=== PATIENT | female | born 1970 | race Caucasian/White ===

== ENCOUNTER 2017-04-24 09:49 | Inpatient (IN) | payer OTHER ==
[2017-04-24 11:07] VITALS: BMI 36.1
--- NOTE | 2017-04-24 15:56 | HP ---
CIWA Score - CIWA Score Nausea/Vomitin-Mild Nausea/No Vomiting Muscle Tremors: 4-Moderate,w/Arms Extend Anxiety: 4-Mod. Anxious/Guarded Agitation: 1-Slight > Activity Paroxysmal Sweats: 1-Minimal Palms Moist Orientation: 1-Uncertain about Date Tacttile Disturbances: 1-Very Mild Itch/Numbness Auditory Disturbances: 1-Very Mild Visual Disturbances: 1-Very Mild Sensitivity Headache: 2-Mild CIWA-Ar Total Score: 17 Admission ROS BHS - HPI Chief Complaint: I need to stop drinking, I'm afraid I'm going to if I don't Allergies/Adverse Reactions: Allergies Allergy/AdvReac Type Severity Reaction Status Date / Time No Known Allergies Allergy Verified 04/24/17 13:34 History of Present Illness: 46 yo woman here for detox from alcohol - was sober for 1.5 years but relapsed a few months ago. History of seizure three years ago but having black outs. Previous detox here in 2014. Was in [place] detox a week ago but states the medication they used did not help. Exam Limitations: Clinical Condition - Ebola screening Have you traveled outside of the country in the last 21 days: No Have you had contact with anyone from an Ebola affected area: No Have you been sick,other than usual withdrawal symptoms: No Do you have a fever: No - Review of Systems Constitutional: Loss of Appetite, Night Sweats, Changes in sleep, Weakness EENT: reports: Blurred Vision Respiratory: reports: Cough Cardiac: reports: No Symptoms Reported GI: reports: Diarrhea, Nausea, Indigestion : reports: Frequency Musculoskeletal: reports: Back Pain, Muscle Pain Integumentary: reports: Dryness Neuro: reports: Headache, Tremors Endocrine: reports: No Symptoms Reported Hematology: reports: No Symptoms Reported Psychiatric: reports: Judgement Intact, Mood/Affect Appropiate, Orientated x3 Other Systems: Reviewed and Negative Patient History - Patient Medical History Hx Anemia: No Hx Asthma: Yes (Pt is on MDI.) Hx Chronic Obstructive Pulmonary Disease (COPD): No Hx Cancer: No Hx Cardiac Disorders: No Hx Congestive Heart Failure: No Hx Hypertension: Yes (on meds.) Hx Hypercholesterolemia: No Hx Pacemaker: No HX Cerebrovascular Accident: No Hx Seizures: Yes (last seizure was in 2014) Hx Dementia: No Hx Diabetes: Yes Hx Gastrointestinal Disorders: Yes (Hx of GERD.) Hx Liver Disease: No Hx Genitourinary Disorders: No Hx Sexually Transmitted Disorders: No Hx Renal Disease (ESRD): No Hx Thyroid Disease: No Hx Human Immunodeficiency Virus (HIV): No (2012 last) Hx Hepatitis C: No Hx Depression: Yes (also ADD) Hx Suicide Attempt: No Hx Bipolar Disorder: Yes Hx Schizophrenia: No Other Medical History: chronic back pain - Patient Surgical History Past Surgical History: No - PPD History Previous Implant?: Yes Documented Results: Negative w/o proof Implanted On Prior [facility] Admission?: Yes Date: 12/27/14 PPD to be Administered?: Yes - Reproductive History Patient is a Female of Child Bearing Age (11 -55 yrs old): Yes Last Menstrual Period: 01/18/14 Patient : No - Smoking Cessation Smoking history: Current every day smoker Have you smoked in the past 12 months: Yes Aproximately how many cigarettes per day: 20 Cigars Per Day: 0 Hx Chewing Tobacco Use: No Initiated information on smoking cessation: Yes 'Breaking Loose' booklet given: 04/24/17 (give on floor) - Substance & Tx. History Hx Alcohol Use: Yes Hx Substance Use: No Substance Use Type: Alcohol Hx Substance Use Treatment: Yes (detox ) - Substances Abused Alcohol Route: Oral Frequency: Daily Amount used: 1-2 pints Age of first use: 16 Date of Last Use: 04/23/17 Family Disease History - Family Disease History Family Disease History: Diabetes: Mother (alive, ), Sister (alive - one with DM) , Other: Father ( - ulcer - etoh), Mother, Sister Admission Physical Exam S - Vital Signs Vital Signs: Vital Signs - 24 hr 04/24/17 11:03 Temperature 98.0 F Pulse Rate 78 Respiratory 20 Rate Blood Pressure 111/73 - Physical General Appearance: Yes: Nourished, Appropriately Dressed, Mild Distress, Obese , Tremorous, Anxious HEENTM: Yes: Hearing grossly Normal, Normal ENT Inspection, Normocephalic, Normal Voice, Pharynx Normal, Tm's normal Respiratory: Yes: Normal Breath Sounds, No Respiratory Distress Neck: Yes: No masses,lesions,Nodules, Supple Breast: Yes: Breast Exam Deferred Cardiology: Yes: Regular Rhythm, Regular Rate Abdominal: Yes: Soft, Protuberent Genitourinary: Yes: Frequency, Incontinient Back: Yes: Decreased Range of Motion Musculoskeletal: Yes: full range of Motion, Gait Steady Extremities: Yes: Normal Inspection, Normal Range of Motion, Tremors Neurological: Yes: Alert, Motor Strength 5/5, Normal Mood/Affect, Normal Response Integumentary: Yes: Normal Color, Warm, Other (chronic scarred lesions abdomen) Lymphatic: Yes: Within Normal Limits - Diagnostic (1) Alcohol dependence Current Visit: Yes Status: Chronic Qualifiers: Substance use status: uncomplicated Qualified Code(s): F10.20 - Alcohol dependence, uncomplicated (2) Asthma Current Visit: Yes Status: Chronic Qualifiers: Asthma severity: mild intermittent Asthma complication type: uncomplicated Qualified Code(s): J45.20 - Mild intermittent asthma, uncomplicated (3) GERD (gastroesophageal reflux disease) Current Visit: Yes Status: Chronic Qualifiers: Esophagitis presence: esophagitis presence not specified Qualified Code(s): K21.9 - Gastro-esophageal reflux disease without esophagitis (4) Nicotine dependence Current Visit: Yes Status: Chronic Qualifiers: Nicotine product type: cigarettes (5) Type 2 diabetes mellitus Current Visit: Yes Status: Chronic Qualifiers: Diabetes mellitus complication status: with hyperglycemia Diabetes mellitus superintendent container terminal insulin use: with shelter use Qualified Code(s): E11.65 - Type 2 diabetes mellitus with hyperglycemia; Z79.4 - superintendent container terminal (current ) use of insulin (6) History of seizure Current Visit: Yes Status: Chronic (7) Chronic back pain greater than 3 months duration Current Visit: Yes Status: Chronic Cleared for Admission [facility] - Detox or Rehab [facility] Level of Care: Medically Managed Detox Regimen/Protocol: Librium [facility] Breath Alcohol Content Breath Alcohol Content: 0 Urine Pregancy Test - Result Urine Test Results: Negative- NO Line Present Urine Drug Screen - Results Drug Screen Negative: No Urine Drug Screen Results: AMP-Amphetamines, BZO-Benzodiazepines
[2017-04-24] MEDS ORDERED: MENTHOL/PHENOL 1 EACH UD MM PRN (16:08)
[2017-04-24] MEDS ORDERED: guaiFENesin/D-METHORPHAN HB 10 ML UNIT-DOSE CUPS PO PRN (16:08)
[2017-04-24] MEDS ORDERED: MAGNESIUM CITRATE 300 ML BOTTLE PO PRN (16:08)
[2017-04-24] MEDS ORDERED: P-EPHED 60MG/TRIPROLIDI 2.5MG TABLET PO PRN (16:08)
[2017-04-24] MEDS ORDERED: chlordiazePOXIDE HCL 25 MG CAPSULE PO ONE (16:08)
[2017-04-24] MEDS ORDERED: LOPERAMIDE HCL 2 MG CAPSULE PO PRN (16:08)
[2017-04-24] MEDS ORDERED: MAG HYDROX/AL HYDROX/SIMETH 30 ML UNIT-DOSE CUP PO PRN (16:08)
[2017-04-24] MEDS ORDERED: ACETAMINOPHEN 325 MG TABLET (FP) PO PRN (16:08)
[2017-04-24] MEDS ORDERED: MAGNESIUM HYDROX 2400MG/30ML ORAL SUSPENSION 30 ML CUP PO PRN (16:08)
[2017-04-24] MEDS ORDERED: PANTOPRAZOLE 40 MG TABLET (FP) PO SCH (17:00)
[2017-04-24] MEDS ORDERED: INSULIN (NOVOLOG) ASPART 100 UNITS/ML 10ML VIAL ONE (17:25)
[2017-04-24] MEDS: metFORMIN HCL 500 MG TABLET (FP) PO SCH (17:27)
[2017-04-24] MEDS: chlordiazePOXIDE HCL 25 MG CAPSULE PO SCH ×2 (17:28→22:09)
[2017-04-24] MEDS: INSULIN SLIDING SCALE (NOVOLOG) 1 VIAL SQ SCH ×2 (17:28→22:17)
[2017-04-24] MEDS: NICOTINE 21 MG/24 HOURS TOPICAL PATCH TD SCH (17:31)
[2017-04-24] MEDS: chlordiazePOXIDE HCL 25 MG CAPSULE PO PRN (20:24)
[2017-04-24] MEDS: NICOTINE POLACRILEX 4 MG GUM BC PRN (20:27)
[2017-04-24 21:12] LABS: URINE APPEARANCE CLEAR; URINE BILIRUBIN NEGATIVE (NEGATIVE); URINE BLOOD NEGATIVE (NEGATIVE); URINE COLOR YELLOW; URINE GLUCOSE (UA) 3+ (NEGATIVE); URINE KETONE 1+ (NEGATIVE); URINE LEUK ESTERASE NEGATIVE (NEGATIVE); URINE NITRITE NEGATIVE (NEGATIVE); URINE PROTEIN NEGATIVE (NEGATIVE); URINE UROBILINOGEN NEGATIVE mg/dL (0.2-1.0)
[2017-04-24] MEDS: ATORVASTATIN CA 40 MG TABLET (FP) PO SCH (22:08)
[2017-04-24] MEDS: DIVALPROEX NA *ER* EXTEND REL 500 MG TABLET.SA (FP) PO SCH (22:08)
[2017-04-24] MEDS: THIAMINE HCL 100 MG TABLET (FP) PO SCH (22:08)
[2017-04-24] MEDS: FLUTICASONE PROP 0.05% 16 GM NASAL SPRAY NS SCH (22:11)
[2017-04-24] MEDS: PATIENT'S OWN MEDICATION (NON-FORMULARY) (Insulin Glargine,Hum.Rec.Anlog [Basaglar Kwikpen SQ SCH (22:15)
[2017-04-25] MEDS: chlordiazePOXIDE HCL 25 MG CAPSULE PO SCH ×4 (05:55→22:20)
[2017-04-25] MEDS ORDERED: PANTOPRAZOLE 40 MG TABLET (FP) PO ONE (06:53)
[2017-04-25] MEDS ORDERED: INSULIN (NOVOLOG) ASPART 100 UNITS/ML 10ML VIAL ONE ×3 (07:06→17:03)
[2017-04-25] MEDS: metFORMIN HCL 500 MG TABLET (FP) PO SCH ×2 (07:26→17:29)
[2017-04-25] MEDS: INSULIN SLIDING SCALE (NOVOLOG) 1 VIAL SQ SCH ×4 (07:27→22:21)
[2017-04-25 10:19] LABS: MCH 29.8 pg (25.7-33.7); MCHC 33.7 g/dl (32.0-36.0); MEAN CELL VOLUME 88.6 fl (80-96); MEAN PLT VOLUME 9.8 fl (7.5-11.1); PLATELET COUNT 216 K/MM3 (134-434); RDW 15.4 % (11.6-15.6); WHITE BLOOD COUNT 8.1 K/mm3 (4.0-10.0)
--- NOTE | 2017-04-25 10:24 | EKG ---
Test Reason : Blood Pressure : / mmHG Vent. Rate : 095 BPM Atrial Rate : 095 BPM P-R Int : 128 ms QRS Dur : 088 ms QT Int : 396 ms P-R-T Axes : 064 054 044 degrees QTc Int : 497 ms NORMAL SINUS RHYTHM RIGHT ATRIAL ENLARGEMENT PROLONGED QT ABNORMAL ECG NO PREVIOUS ECGS AVAILABLE Confirmed by MD PATRICK, CAMDEN ([id number]) on 04/25/2017 10:23:48 AM Referred By: Confirmed By:CAMDEN NGUYEN MD
[2017-04-25] MEDS: hydrOXYzine PAMOATE 50 MG CAPSULE (FP) PO PRN ×2 (10:39→20:36)
[2017-04-25] MEDS: PRENATAL VITAMINS W/ FOLIC ACID TABLET (FP) PO SCH (10:40)
[2017-04-25] MEDS: NICOTINE 21 MG/24 HOURS TOPICAL PATCH TD SCH (10:40)
[2017-04-25] MEDS: LISINOPRIL 5 MG TABLET (FP) PO SCH (10:40)
[2017-04-25] MEDS: FLUTICASONE PROP 0.05% 16 GM NASAL SPRAY NS SCH ×2 (10:41→22:18)
[2017-04-25] MEDS: ALBUTEROL SO4 6.7 GM HFA INHALER IH PRN ×2 (10:45→22:21)
[2017-04-25 11:03] LABS: ALBUMIN 3.8 g/dl (3.4-5.0); ALK PHOS 75 U/L (45-117); ANION GAP 11 (8-16); BILIRUBIN,TOTAL 0.7 mg/dL (0.2-1.0); CALCIUM 9.5 mg/dL (8.5-10.1); CO2 25 mmol/L (21-32); SGOT/AST 11 U/L (15-37); SGPT/ALT 27 U/L (12-78); TOT PROT 7.2 g/dl (6.4-8.2)
--- NOTE | 2017-04-25 11:52 | PN ---
[facility] CIWA - CIWA Score Nausea/Vomitin Muscle Tremors: 2 Anxiety: 3 Agitation: 2 Paroxysmal Sweats: 3 Orientation: 0-Oriented Tacttile Disturbances: 2-Mild Itch/Numbness/Burn Auditory Disturbances: 0-None Visual Disturbances: 0-None Headache: 0-None Present CIWA-Ar Total Score: 15 S Progress Note (SOAP) Subjective: interrupted sleep, sweats, shakes , heartburn Objective: 04/25/17 11:50 Vital Signs Temperature 98.1 F 04/25/17 10:50 Pulse Rate 90 04/25/17 10:50 Respiratory Rate 18 04/25/17 10:50 Blood Pressure 111/59 04/25/17 10:50 O2 Sat by Pulse Oximetry (%) Laboratory Tests 04/24/17 04/24/17 04/24/17 14:02 17:19 17:19 WBC RBC Hgb Hct MCV MCH MCHC RDW Plt Count MPV Sodium Potassium Chloride Carbon Dioxide Anion Gap BUN Creatinine Creat Clearance w eGFR POC Glucometer 417 365 Calcium Total Bilirubin AST ALT Alkaline Phosphatase Total Protein Albumin Urine Color Yellow Urine Appearance Clear Urine pH 5.0 Ur Specific Orange 1.020 Urine Protein Negative Urine Glucose (UA) 3+ H D Urine Ketones 1+ H Urine Blood Negative Urine Nitrite Negative Urine Bilirubin Negative Urine Urobilinogen Negative Ur Leukocyte Esterase Negative 04/24/17 04/25/17 04/25/17 21:12 05:45 05:45 WBC 8.1 D RBC 4.46 Hgb 13.3 Hct 39.5 MCV 88.6 MCH 29.8 D MCHC 33.7 RDW 15.4 Plt Count 216 D MPV 9.8 Sodium 134 L Potassium 4.4 D Chloride 98 Carbon Dioxide 25 Anion Gap 11 BUN 18 D Creatinine 1.0 D Creat Clearance w eGFR 59.18 POC Glucometer 249 Calcium 9.5 Total Bilirubin 0.7 D AST 11 L D ALT 27 D Alkaline Phosphatase 75 Total Protein 7.2 Albumin 3.8 Urine Color Urine Appearance Urine pH Ur Specific Orange Urine Protein Urine Glucose (UA) Urine Ketones Urine Blood Urine Nitrite Urine Bilirubin Urine Urobilinogen Ur Leukocyte Esterase 04/25/17 05:54 WBC RBC Hgb Hct MCV MCH MCHC RDW Plt Count MPV Sodium Potassium Chloride Carbon Dioxide Anion Gap BUN Creatinine Creat Clearance w eGFR POC Glucometer 269 Calcium Total Bilirubin AST ALT Alkaline Phosphatase Total Protein Albumin Urine Color Urine Appearance Urine pH Ur Specific Orange Urine Protein Urine Glucose (UA) Urine Ketones Urine Blood Urine Nitrite Urine Bilirubin Urine Urobilinogen Ur Leukocyte Esterase pt aox3 in nad ambualting Assessment: 04/25/17 11:51 withdrawal sx's gerd Plan: cont. detox increase fluids protonix daily
[2017-04-25 12:27] LABS: GLUCOSE,RANDOM 436 mg/dL (74-106)
[2017-04-25] MEDS: IBUPROFEN 400 MG TABLET (FP) PO PRN (14:47)
[2017-04-25] MEDS: chlordiazePOXIDE HCL 25 MG CAPSULE PO PRN ×2 (14:47→20:38)
[2017-04-25] MEDS: NICOTINE POLACRILEX 4 MG GUM BC PRN (14:54)
--- NOTE | 2017-04-25 17:11 | CONSULT ---
[facility] Psychiatric Consult - Data Date of interview: 04/25/17 Admission source: [facility] Identifying data: Readmission to [facility] for this 46 y/o female seeking detox on for alcohol dependence.Patient is single,without children,domiciled,unemployed and supported on Public Assistance. Substance Abuse History: Patient admits to abusing alcohol since age 18.Consumes vodka on a daily basis.Smokes 20 cigarettes a day. Medical History: Obesity,diabetes mellitus,hypercholesterolemia,alcohol-related seizures,bronchial asthma,GERD and hypertension. Psychiatric History: Diagnosed with ADHD and Bipolar Disorder.Patient denies history of psychiatric hospitalizations.Gets her outpatient psychiatric services at [facility] clinic.Managed on a regimen of adderall and depakote.Ms Castillo denies history of suicide attempts. Physical/Sexual Abuse/Trauma History: Patient denies. Additional Comment: Urine Drug Screen Results: AMP-Amphetamines, BZO- Benzodiazepines.Noted. Mental Status Exam - Mental Status Exam Alert and Oriented to: Time, Place, Person Cognitive Function: Fair Patient Appearance: Well Groomed Mood: Hopeful, Euthymic Affect: Appropriate, Normal Range Patient Behavior: Fatigued, Cooperative Speech Pattern: Clear Voice Loudness: Normal Thought Process: Goal Oriented Thought Disorder: Not Present Hallucinations: Denies Suicidal Ideation: Denies Homicidal Ideation: Denies Insight/Judgement: Poor Sleep: Well Appetite: Good Muscle strength/Tone: Normal Gait/Station: Normal Psychiatric Findings - Problem List ([place] 1, 2,3) (1) ADHD (attention deficit hyperactivity disorder) Current Visit: Yes Status: Chronic Comment: History. (2) Bipolar disorder Current Visit: Yes Status: Chronic Comment: Self-report. (3) Alcohol dependence Current Visit: Yes Status: Acute Qualifiers: Substance use status: uncomplicated Qualified Code(s): F10.20 - Alcohol dependence, uncomplicated (4) Nicotine dependence Current Visit: Yes Status: Acute Qualifiers: Nicotine product type: cigarettes (5) HTN (hypertension) Current Visit: Yes Status: Chronic (6) GERD (gastroesophageal reflux disease) Current Visit: Yes Status: Chronic Qualifiers: Esophagitis presence: esophagitis presence not specified Qualified Code(s): K21.9 - Gastro-esophageal reflux disease without esophagitis (7) Type 2 diabetes mellitus Current Visit: Yes Status: Chronic Qualifiers: Diabetes mellitus complication status: with hyperglycemia Diabetes mellitus senior living insulin use: with senior living use Qualified Code(s): E11.65 - Type 2 diabetes mellitus with hyperglycemia; Z79.4 - rn long term care (current ) use of insulin (8) Asthma Current Visit: Yes Status: Chronic Qualifiers: Asthma severity: mild intermittent Asthma complication type: uncomplicated Qualified Code(s): J45.20 - Mild intermittent asthma, uncomplicated (9) History of seizure Current Visit: Yes Status: Chronic - Initial Treatment Plan Initial Treatment Plan: Psychoeducation.Detoxification in progress.Patient will resume adderall in OPD care.Depakote ER 1000 mg po hs.Ordered.Patient is made aware of risk of liver dysfunction,blood dyscrasias,alopecia,weight gain, polycystic ovaries and sedation.Patient is in agreement with this careplan.Valproic acid level is requested.Will follow.Observation.Medications reconciled : noted filled scripts for valproate on 03/19/17 + 04/05/17 for adderall @ [facility] # [id number].
[2017-04-25] MEDS: DIVALPROEX NA *ER* EXTEND REL 500 MG TABLET.SA (FP) PO SCH (22:18)
[2017-04-25] MEDS: ATORVASTATIN CA 40 MG TABLET (FP) PO SCH (22:20)
[2017-04-25] MEDS: PATIENT'S OWN MEDICATION (NON-FORMULARY) (Insulin Glargine,Hum.Rec.Anlog [Basaglar Kwikpen SQ SCH (22:20)
[2017-04-25] MEDS: diphenhydrAMINE HCL 50 MG CAPSULE PO PRN (22:21)
[2017-04-25] MEDS: THIAMINE HCL 100 MG TABLET (FP) PO SCH (22:21)
[2017-04-26] MEDS: chlordiazePOXIDE HCL 25 MG CAPSULE PO SCH ×2 (05:46→10:40)
[2017-04-26] MEDS: PANTOPRAZOLE 40 MG TABLET (FP) PO SCH (05:47)
[2017-04-26] MEDS: hydrOXYzine PAMOATE 50 MG CAPSULE (FP) PO PRN ×3 (05:48→16:51)
[2017-04-26] MEDS ORDERED: PANTOPRAZOLE 40 MG TABLET (FP) PO SCH (07:00)
[2017-04-26] MEDS ORDERED: INSULIN (NOVOLOG) ASPART 100 UNITS/ML 10ML VIAL ONE ×4 (07:33→16:48)
[2017-04-26] MEDS: INSULIN SLIDING SCALE (NOVOLOG) 1 VIAL SQ SCH ×4 (07:41→23:25)
[2017-04-26] MEDS: metFORMIN HCL 500 MG TABLET (FP) PO SCH ×2 (07:41→16:51)
[2017-04-26] MEDS: FLUTICASONE PROP 0.05% 16 GM NASAL SPRAY NS SCH ×2 (10:39→23:25)
[2017-04-26] MEDS: NICOTINE 21 MG/24 HOURS TOPICAL PATCH TD SCH (10:39)
[2017-04-26] MEDS: LISINOPRIL 5 MG TABLET (FP) PO SCH (10:40)
[2017-04-26] MEDS: PRENATAL VITAMINS W/ FOLIC ACID TABLET (FP) PO SCH (10:40)
[2017-04-26] MEDS: chlordiazePOXIDE HCL 25 MG CAPSULE PO PRN (14:32)
--- NOTE | 2017-04-26 14:59 | PN ---
S CIWA - CIWA Score Nausea/Vomitin Muscle Tremors: 3 Anxiety: 3 Agitation: 2 Paroxysmal Sweats: 1-Minimal Palms Moist Orientation: 0-Oriented Tacttile Disturbances: 1-Very Mild Itch/Numbness Auditory Disturbances: 1-Very Mild Visual Disturbances: 1-Very Mild Sensitivity Headache: 2-Mild CIWA-Ar Total Score: 17 BHS Progress Note (SOAP) Subjective: alert,irritable,anxious,interrupted sleep,tremor Objective: 04/26/17 14:56 Vital Signs Temperature 97.7 F 04/26/17 14:31 Pulse Rate 92 H 04/26/17 14:31 Respiratory Rate 18 04/26/17 14:31 Blood Pressure 120/63 04/26/17 14:31 O2 Sat by Pulse Oximetry (%) 04/26/17 14:57 Laboratory Last Values WBC 8.1 K/mm3 (4.0-10.0) D 04/25/17 05:45 RBC 4.46 M/mm3 (3.60-5.2) 04/25/17 05:45 Hgb 13.3 GM/dL (10.7-15.3) 04/25/17 05:45 Hct 39.5 % (32.4-45.2) 04/25/17 05:45 MCV 88.6 fl (80-96) 04/25/17 05:45 MCH 29.8 pg (25.7-33.7) D 04/25/17 05:45 MCHC 33.7 g/dl (32.0-36.0) 04/25/17 05:45 RDW 15.4 % (11.6-15.6) 04/25/17 05:45 Plt Count 216 K/MM3 (134-434) D 04/25/17 05:45 MPV 9.8 fl (7.5-11.1) 04/25/17 05:45 Sodium 134 mmol/L (136-145) L 04/25/17 05:45 Potassium 4.4 mmol/L (3.5-5.1) D 04/25/17 05:45 Chloride 98 mmol/L (98-107) 04/25/17 05:45 Carbon Dioxide 25 mmol/L (21-32) 04/25/17 05:45 Anion Gap 11 (8-16) 04/25/17 05:45 BUN 18 mg/dL (7-18) D 04/25/17 05:45 Creatinine 1.0 mg/dL (0.55-1.02) D 04/25/17 05:45 Creat Clearance w eGFR 59.18 (>60) 04/25/17 05:45 POC Glucometer 296 UNITS (()) 04/26/17 11:29 Random Glucose 436 mg/dL (74-106) H* D 04/25/17 05:45 Calcium 9.5 mg/dL (8.5-10.1) 04/25/17 05:45 Total Bilirubin 0.7 mg/dL (0.2-1.0) D 04/25/17 05:45 AST 11 U/L (15-37) L D 04/25/17 05:45 ALT 27 U/L (12-78) D 04/25/17 05:45 Alkaline Phosphatase 75 U/L (45-117) 04/25/17 05:45 Total Protein 7.2 g/dl (6.4-8.2) 04/25/17 05:45 Albumin 3.8 g/dl (3.4-5.0) 04/25/17 05:45 Urine Color Yellow 04/24/17 17:19 Urine Appearance Clear 04/24/17 17:19 Urine pH 5.0 (5.0-8.0) 04/24/17 17:19 Ur Specific [place] 1.020 (1.005-1.025) 04/24/17 17:19 Urine Protein Negative (NEGATIVE) 04/24/17 17:19 Urine Glucose (UA) 3+ (NEGATIVE) H D 04/24/17 17:19 Urine Ketones 1+ (NEGATIVE) H 04/24/17 17:19 Urine Blood Negative (NEGATIVE) 04/24/17 17:19 Urine Nitrite Negative (NEGATIVE) 04/24/17 17:19 Urine Bilirubin Negative (NEGATIVE) 04/24/17 17:19 Urine Urobilinogen Negative mg/dL (0.2-1.0) 04/24/17 17:19 Ur Leukocyte Esterase Negative (NEGATIVE) 04/24/17 17:19 Valproic Acid 40.062 ug/ml (50-100) L 04/26/17 08:40 RPR Titer Nonreactive (NONREACTIVE) 04/25/17 05:45 Assessment: 04/26/17 14:57 withdrawal symptom Plan: continue detox,bgm monitoring with insulin coverage
[2017-04-26] MEDS: chlordiazePOXIDE 5 MG CAPSULE PO SCH ×2 (16:51→22:23)
[2017-04-26] MEDS: ATORVASTATIN CA 40 MG TABLET (FP) PO SCH (22:23)
[2017-04-26] MEDS: DIVALPROEX NA *ER* EXTEND REL 500 MG TABLET.SA (FP) PO SCH (22:23)
[2017-04-26] MEDS: THIAMINE HCL 100 MG TABLET (FP) PO SCH (22:23)
[2017-04-26] MEDS: PATIENT'S OWN MEDICATION (NON-FORMULARY) (Insulin Glargine,Hum.Rec.Anlog [Basaglar Kwikpen SQ SCH (22:23)
[2017-04-26] MEDS: diphenhydrAMINE HCL 50 MG CAPSULE PO PRN (22:24)
[2017-04-27] MEDS: chlordiazePOXIDE 5 MG CAPSULE PO SCH ×2 (05:38→10:25)
[2017-04-27] MEDS: PANTOPRAZOLE 40 MG TABLET (FP) PO SCH (06:28)
[2017-04-27] MEDS ORDERED: INSULIN (NOVOLOG) ASPART 100 UNITS/ML 10ML VIAL ONE ×4 (06:31→21:55)
[2017-04-27] MEDS: IBUPROFEN 400 MG TABLET (FP) PO PRN ×2 (06:33→20:18)
[2017-04-27] MEDS: INSULIN SLIDING SCALE (NOVOLOG) 1 VIAL SQ SCH ×4 (06:34→22:08)
[2017-04-27] MEDS: metFORMIN HCL 500 MG TABLET (FP) PO SCH ×2 (06:53→16:46)
[2017-04-27] MEDS: FLUTICASONE PROP 0.05% 16 GM NASAL SPRAY NS SCH ×2 (10:24→22:08)
[2017-04-27] MEDS: hydrOXYzine PAMOATE 50 MG CAPSULE (FP) PO PRN ×2 (10:24→14:03)
[2017-04-27] MEDS: LISINOPRIL 5 MG TABLET (FP) PO SCH (10:24)
[2017-04-27] MEDS: PRENATAL VITAMINS W/ FOLIC ACID TABLET (FP) PO SCH (10:24)
[2017-04-27] MEDS: NICOTINE 21 MG/24 HOURS TOPICAL PATCH TD SCH (10:25)
--- NOTE | 2017-04-27 11:35 | PN ---
S Progress Note (SOAP) Subjective: ALERT,IRRITABLE,INTERRUPTED SLEEP Objective: 04/27/17 11:34 Vital Signs Temperature 97.3 F L 04/27/17 10:00 Pulse Rate 92 H 04/27/17 10:00 Respiratory Rate 20 04/27/17 10:00 Blood Pressure 118/67 04/27/17 10:00 O2 Sat by Pulse Oximetry (%) Assessment: 04/27/17 11:34 WITHDRAWAL SYMPTOM,BGM 255 Plan: CONTINUE DETOX,BGM MONITORING WITH INSULLINCOVERAGE,DISCHARGE IN AM
[2017-04-27] MEDS: chlordiazePOXIDE HCL 25 MG CAPSULE PO PRN (14:03)
[2017-04-27] MEDS ORDERED: chlordiazePOXIDE 5 MG CAPSULE ONE ×2 (16:37→21:19)
[2017-04-27] MEDS: chlordiazePOXIDE HCL 10 MG CAPSULE PO SCH ×2 (16:50→22:10)
[2017-04-27] MEDS: DIVALPROEX NA *ER* EXTEND REL 500 MG TABLET.SA (FP) PO SCH (22:07)
[2017-04-27] MEDS: ATORVASTATIN CA 40 MG TABLET (FP) PO SCH (22:07)
[2017-04-27] MEDS: PATIENT'S OWN MEDICATION (NON-FORMULARY) (Insulin Glargine,Hum.Rec.Anlog [Basaglar Kwikpen SQ SCH (22:08)
[2017-04-27] MEDS: THIAMINE HCL 100 MG TABLET (FP) PO SCH (22:08)
[2017-04-28] MEDS: hydrOXYzine PAMOATE 50 MG CAPSULE (FP) PO PRN (03:56)
[2017-04-28] MEDS: chlordiazePOXIDE HCL 10 MG CAPSULE PO SCH (05:29)
[2017-04-28] MEDS: PANTOPRAZOLE 40 MG TABLET (FP) PO SCH (05:29)
[2017-04-28 06:20] VITALS: BP 122/75; PULSE 79; TEMP 96.6
[2017-04-28] MEDS ORDERED: INSULIN (NOVOLOG) ASPART 100 UNITS/ML 10ML VIAL ONE (07:38)
[2017-04-28] MEDS: INSULIN SLIDING SCALE (NOVOLOG) 1 VIAL SQ SCH (07:41)
[2017-04-28] MEDS: metFORMIN HCL 500 MG TABLET (FP) PO SCH (07:42)
--- NOTE | 2017-04-28 08:59 | DS ---
[facility] Detox Discharge Summary Admission Date: 04/24/17 Discharge Date: 04/28/17 - History Present History: Alcohol Dependence - Physical Exam Results Vital Signs: Vital Signs Temperature 96.6 F L 04/28/17 06:19 Pulse Rate 79 04/28/17 06:19 Respiratory Rate 18 04/28/17 06:19 Blood Pressure 122/75 04/28/17 06:19 O2 Sat by Pulse Oximetry (%) - Treatment Hospital Course: Detox Protocol Followed, Detoxed Safely, Responded well, Discharged Condition Good, Rehab Referral Accepted - Medication Discharge Medications: Ambulatory Orders Metformin HCl [Glucophage -] 1,000 mg PO BID@0700,1630 #60 tablet 12/29/14 Albuterol Sulfate Inhaler - [Ventolin Hfa Inhaler -] 2 inh PO Q4H PRN 04/24/17 Amphetamine Sulfate [Evekeo] 20 mg PO DAILY 04/24/17 Atorvastatin Calcium 40 mg PO HS 04/24/17 Cetirizine HCl 10 mg PO DAILY 04/24/17 Diazepam [Valium] 5 mg PO Q8H 04/24/17 Divalproex Sodium [Divalproex Sodium ER] 1,000 mg PO HS 04/24/17 Fluticasone Prop 0.05% Nasal [Flonase -] 1 - 2 spray NS BID 04/24/17 Ibuprofen 800 mg PO Q6H PRN 04/24/17 Insulin Glargine,Hum.rec.anlog [Basaglar Kwikpen U-100] 17 unit SQ HS 04/24/17 Lisinopril 5 mg PO DAILY 04/24/17 Omeprazole 40 mg PO DAILY 04/24/17 Divalproex Sodium [Depakote ER] 1,000 mg PO HS #60 tab.er.24h 04/25/17 - Diagnosis (1) Alcohol dependence Current Visit: Yes Status: Chronic Qualifiers: Substance use status: uncomplicated Qualified Code(s): F10.20 - Alcohol dependence, uncomplicated (2) Nicotine dependence Current Visit: Yes Status: Chronic Qualifiers: Nicotine product type: cigarettes (3) ADHD (attention deficit hyperactivity disorder) Current Visit: Yes Status: Chronic (4) Asthma Current Visit: Yes Status: Chronic Qualifiers: Asthma severity: mild intermittent Asthma complication type: uncomplicated Qualified Code(s): J45.20 - Mild intermittent asthma, uncomplicated (5) Bipolar disorder Current Visit: Yes Status: Chronic (6) Chronic back pain greater than 3 months duration Current Visit: Yes Status: Chronic (7) GERD (gastroesophageal reflux disease) Current Visit: Yes Status: Chronic Qualifiers: Esophagitis presence: without esophagitis Qualified Code(s): K21.9 - Gastro-esophageal reflux disease without esophagitis (8) HTN (hypertension) Current Visit: Yes Status: Chronic Qualifiers: Hypertension type: essential hypertension Qualified Code(s): I10 - Essential (primary) hypertension (9) History of seizure Current Visit: No Status: Inactive (10) Type 2 diabetes mellitus Current Visit: Yes Status: Chronic Qualifiers: Diabetes mellitus complication status: without complication Diabetes mellitus chcf insulin use: with chcf use Qualified Code(s): E11.9 - Type 2 diabetes mellitus without complications; 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
[2017-04-28] MEDS: PRENATAL VITAMINS W/ FOLIC ACID TABLET (FP) PO SCH (09:18)
[2017-04-28] MEDS: NICOTINE 21 MG/24 HOURS TOPICAL PATCH TD SCH (09:18)
[2017-04-28] MEDS: FLUTICASONE PROP 0.05% 16 GM NASAL SPRAY NS SCH (09:18)
[2017-04-28] MEDS: LISINOPRIL 5 MG TABLET (FP) PO SCH (09:19)
== END 2017-04-28 08:58 | disposition home or self-care (01) | DRG 775 ==
LOC: YASAS 09:49 → Y6N 16:04
PROVIDERS: ADMIT Internal Medicine Addiction Medicine; ATTEND Internal Medicine Addiction Medicine
PROC: HZ2ZZZZ Detoxification Services for Substance Abuse Treatment (ICD-10-PCS; principal; 2017-04-24)
DX: F10.230 Alcohol dependence with withdrawal, uncomplicated (principal); F17.210 Nicotine dependence, cigarettes, uncomplicated; F90.9 Attention-deficit hyperactivity disorder, unspecified type; F31.9 Bipolar disorder, unspecified; F41.8 Other specified anxiety disorders; J45.20 Mild intermittent asthma, uncomplicated; M54.5 Low back pain; G89.29 Other chronic pain; K21.9 Gastro-esophageal reflux disease without esophagitis; R29.6 Repeated falls; E11.9 Type 2 diabetes mellitus without complications; E66.9 Obesity, unspecified; Z68.36 Body mass index [BMI] 36.0-36.9, adult; Z79.4 Long term (current) use of insulin; Z86.69 Personal history of other diseases of the nervous system and sense organs; Z86.79 Personal history of other diseases of the circulatory system
CPT/HCPCS: 36415; 80053; 80164; 81003; 85027; 86593; 93005; 93010

== ENCOUNTER 2017-05-28 11:25 | Inpatient (IN) | payer OTHER ==
[2017-05-28 12:18] VITALS: BMI 36.3
--- NOTE | 2017-05-28 14:53 | HP ---
CIWA Score - CIWA Score Nausea/Vomitin (diarrhea) Muscle Tremors: 4-Moderate,w/Arms Extend Anxiety: 4-Mod. Anxious/Guarded Agitation: 3 Paroxysmal Sweats: 1-Minimal Palms Moist Orientation: 0-Oriented Tacttile Disturbances: 3-Moderate Itch/Numb/Burn Auditory Disturbances: 0-None Visual Disturbances: 0-None Headache: 0-None Present CIWA-Ar Total Score: 18 Admission ROS S - HPI Chief Complaint: DETOX TX FOR ALCOHOL DEPENDENCE Allergies/Adverse Reactions: Allergies Allergy/AdvReac Type Severity Reaction Status Date / Time No Known Allergies Allergy Verified 05/28/17 14:08 History of Present Illness: 46 Y/O FEMALE WITH A HX OF ALCOHOL DEPENDENCE SEEKING DETOX [place] Exam Limitations: No Limitations - Ebola screening Have you traveled outside of the country in the last 21 days: No Have you had contact with anyone from an Ebola affected area: No Have you been sick,other than usual withdrawal symptoms: No Do you have a fever: No - Review of Systems Constitutional: Chills, Loss of Appetite, Night Sweats, Changes in sleep EENT: reports: Blurred Vision (WEARS GLASSES), Nose Congestion (ON NASAL SPRAYS) Respiratory: reports: Shortness of Breath (HX ASTHMA- MDI), Wheezing Cardiac: reports: Lightheadedness, Chest Tightness GI: reports: Diarrhea, Nausea, Poor Appetite, Indigestion (ON OMEPRAZOLE) : reports: Frequency, Incontinence (WEARS INCONTINENT UNDERGARMENT) Musculoskeletal: reports: Back Pain Integumentary: reports: Bruising (RIGHT KNEE), Lesions (ABDOMEN), Rash (ABDOMEN) Neuro: reports: Headache, Seizure, Tremors, Unsteady Gait, Dizziness Endocrine: reports: No Symptoms Reported Hematology: reports: Anemia, Easy Bruising Psychiatric: reports: Orientated x3, Anxious, Depressed Other Systems: Reviewed and Negative Patient History - Patient Medical History Hx Anemia: Yes (NO CURRENT MED) Hx Asthma: Yes (Pt is on MDI.) Hx Chronic Obstructive Pulmonary Disease (COPD): No Hx Cancer: No Hx Cardiac Disorders: No Hx Congestive Heart Failure: No Hx Hypertension: Yes (on medication) Hx Hypercholesterolemia: Yes (ATORVASTATIN 40 MG) Hx Pacemaker: No HX Cerebrovascular Accident: No Hx Seizures: Yes (last seizure was in 2014) Hx Dementia: No Hx Diabetes: Yes Hx Gastrointestinal Disorders: Yes (Hx of GERD.) Hx Liver Disease: No Hx Genitourinary Disorders: No Hx Sexually Transmitted Disorders: No Hx Renal Disease (ESRD): No Hx Thyroid Disease: No Hx Human Immunodeficiency Virus (HIV): No (2012 last-NEGATIVE HX) Hx Hepatitis C: No Hx Depression: Yes Hx Suicide Attempt: No (DENIES) Hx Bipolar Disorder: Yes Hx Schizophrenia: No - Patient Surgical History Past Surgical History: Yes Hx Neurologic Surgery: No Hx Cataract Extraction: No Hx Cardiac Surgery: No Hx Lung Surgery: No Hx Breast Surgery: No Hx Breast Biopsy: No Hx Abdominal Surgery: No Hx Appendectomy: No Hx Cholecystectomy: No Hx Genitourinary Surgery: No Hx Section: No Hx Orthopedic Surgery: No Hx Hysterectomy: No Other Surgical History: 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 Anesthesia Reaction: No - PPD History Previous Implant?: Yes Documented Results: Negative w/proof Implanted On Prior [facility] Admission?: Yes Date: 04/26/17 PPD to be Administered?: No - Reproductive History Patient is a Female of Child Bearing Age (11 -55 yrs old): Yes Last Menstrual Period: 01/18/14 Patient : No - Smoking Cessation Smoking history: Current every day smoker Have you smoked in the past 12 months: No Aproximately how many cigarettes per day: 10 Cigars Per Day: 0 Hx Chewing Tobacco Use: No Initiated information on smoking cessation: Yes 'Breaking Loose' booklet given: 05/28/17 - Substance & Tx. History Hx Alcohol Use: Yes (RUM) Hx Substance Use: No (DENIES) Hx Substance Use Treatment: Yes (LAST TX AT [facility] DETOX) - Substances Abused Alcohol Route: Oral Frequency: Daily Amount used: Rum - 2 pints Age of first use: 16 Date of Last Use: 05/27/17 Family Disease History - Family Disease History Family Disease History: Diabetes: Mother (alive, ), Sister (alive - one with DM) , Other: Father ( - ulcer - etoh), Mother, Sister Admission Physical Exam S - Vital Signs Vital Signs: Vital Signs - 24 hr 05/28/17 12:16 Temperature 98.3 F Pulse Rate 118 H Respiratory 20 Rate Blood Pressure 137/79 - Physical General Appearance: Yes: Moderate Distress, Irritable, Anxious HEENTM: Yes: EOMI, Normocephalic, EMILY, Pharynx Normal, Nasal Congestion, Rhinorrhea Respiratory: Yes: Chest Non-Tender, Lungs Clear, Normal Breath Sounds, No Respiratory Distress Neck: Yes: No masses,lesions,Nodules, Supple, Trachea in good position Breast: Yes: Breast Exam Deferred Cardiology: Yes: Regular Rhythm, Regular Rate, S1, S2 Abdominal: Yes: Normal Bowel Sounds, Non Tender, Soft Genitourinary: Yes: Other (N/C) Back: Yes: Within Normal Limits Musculoskeletal: Yes: full range of Motion, Gait Steady Extremities: Yes: Normal Range of Motion, Non-Tender Neurological: Yes: hoop puncher II-XII NML intact, Fully Oriented, Alert Integumentary: Yes: Dry, Warm Lymphatic: Yes: Within Normal Limits - Diagnostic (1) Frequent falls Current Visit: Yes Status: Suspected (2) Asthma Current Visit: Yes Status: Chronic Qualifiers: Asthma severity: mild intermittent Asthma complication type: uncomplicated Qualified Code(s): J45.20 - Mild intermittent asthma, uncomplicated (3) Chronic back pain greater than 3 months duration Current Visit: Yes Status: Chronic (4) GERD (gastroesophageal reflux disease) Current Visit: Yes Status: Chronic Qualifiers: Esophagitis presence: without esophagitis Qualified Code(s): K21.9 - Gastro-esophageal reflux disease without esophagitis (5) HTN (hypertension) Current Visit: Yes Status: Chronic Qualifiers: Hypertension type: essential hypertension Qualified Code(s): I10 - Essential (primary) hypertension (6) Nicotine dependence Current Visit: Yes Status: Acute Qualifiers: Nicotine product type: cigarettes Substance use status: in withdrawal Qualified Code(s): F17.213 - Nicotine dependence, cigarettes, with withdrawal (7) Type 2 diabetes mellitus Current Visit: Yes Status: Chronic Qualifiers: Diabetes mellitus complication status: without complication Diabetes mellitus nursing home insulin use: with nursing home use Qualified Code(s): E11.9 - Type 2 diabetes mellitus without complications (8) Alcohol dependence with uncomplicated withdrawal Current Visit: Yes Status: Acute Cleared for Admission [facility] - Detox or Rehab [facility] Level of Care: Medically Managed Detox Regimen/Protocol: Librium [facility] Breath Alcohol Content Breath Alcohol Content: 0 Urine Pregancy Test - Result Urine Test Results: Negative- NO Line Present Urine Drug Screen - Results Drug Screen Negative: No Urine Drug Screen Results: AMP-Amphetamines, BZO-Benzodiazepines
[2017-05-28] MEDS ORDERED: ACETAMINOPHEN 325 MG TABLET (FP) PO PRN (15:22)
[2017-05-28] MEDS ORDERED: MAG HYDROX/AL HYDROX/SIMETH 30 ML UNIT-DOSE CUP PO PRN (15:22)
[2017-05-28] MEDS ORDERED: MAGNESIUM HYDROX 2400MG/30ML ORAL SUSPENSION 30 ML CUP PO PRN (15:22)
[2017-05-28] MEDS ORDERED: guaiFENesin/D-METHORPHAN HB 10 ML UNIT-DOSE CUPS PO PRN (15:22)
[2017-05-28] MEDS ORDERED: LOPERAMIDE HCL 2 MG CAPSULE PO PRN (15:22)
[2017-05-28] MEDS ORDERED: MAGNESIUM CITRATE 300 ML BOTTLE PO PRN (15:22)
[2017-05-28] MEDS ORDERED: P-EPHED 60MG/TRIPROLIDI 2.5MG TABLET PO PRN (15:22)
[2017-05-28] MEDS ORDERED: MENTHOL/PHENOL 1 EACH UD MM PRN (15:22)
[2017-05-28] MEDS ORDERED: hydrOXYzine PAMOATE 25 MG CAPSULE (FP) PO PRN (15:22)
[2017-05-28] MEDS ORDERED: NICOTINE POLACRILEX 2 MG GUM BC PRN (15:22)
[2017-05-28] MEDS ORDERED: chlordiazePOXIDE HCL 25 MG CAPSULE PO ONE (16:00)
[2017-05-28] MEDS: INSULIN SLIDING SCALE (NOVOLOG) 1 VIAL SQ SCH (17:12)
[2017-05-28] MEDS: chlordiazePOXIDE HCL 25 MG CAPSULE PO SCH ×2 (17:12→22:30)
[2017-05-28] MEDS: metFORMIN HCL 500 MG TABLET (FP) PO SCH (17:12)
[2017-05-28] MEDS ORDERED: INSULIN (NOVOLOG) ASPART 100 UNITS/ML 10ML VIAL ONE (17:14)
[2017-05-28] MEDS: NICOTINE 14 MG/24 HOURS TOPICAL PATCH TD SCH (17:18)
[2017-05-28 17:41] LABS: MCH 29.7 pg (25.7-33.7); MEAN CELL VOLUME 89.9 fl (80-96); MEAN PLT VOLUME 8.9 fl (7.5-11.1); PLATELET COUNT 279 K/MM3 (134-434); RDW 14.8 % (11.6-15.6); WHITE BLOOD COUNT 9.4 K/mm3 (4.0-10.0)
[2017-05-28 17:51] LABS: ALBUMIN 4.1 g/dl (3.4-5.0); ANION GAP 13 (8-16); BILIRUBIN,TOTAL 1.2 mg/dL (0.2-1.0); CALCIUM 8.9 mg/dL (8.5-10.1); CO2 25 mmol/L (21-32); CREATININE 0.9 mg/dL (0.55-1.02); GLUCOSE,RANDOM 287 mg/dL (74-106); SGOT/AST 23 U/L (15-37); SGPT/ALT 43 U/L (12-78)
[2017-05-28 17:53] LABS: ALK PHOS 82 U/L (45-117); TOT PROT 7.9 g/dl (6.4-8.2)
[2017-05-28] MEDS: hydrOXYzine PAMOATE 25 MG CAPSULE (FP) PO PRN (20:05)
[2017-05-28] MEDS: chlordiazePOXIDE HCL 25 MG CAPSULE PO PRN (20:07)
[2017-05-28 22:09] LABS: URINE APPEARANCE SLCLOUDY; URINE BILIRUBIN NEGATIVE (NEGATIVE); URINE BLOOD NEGATIVE (NEGATIVE); URINE COLOR YELLOW; URINE GLUCOSE (UA) 3+ (NEGATIVE); URINE KETONE 1+ (NEGATIVE); URINE LEUK ESTERASE NEGATIVE (NEGATIVE); URINE NITRITE NEGATIVE (NEGATIVE); URINE PROTEIN NEGATIVE (NEGATIVE); URINE UROBILINOGEN NEGATIVE mg/dL (0.2-1.0)
[2017-05-28] MEDS: ATORVASTATIN CA 40 MG TABLET (FP) PO SCH (22:29)
[2017-05-28] MEDS: THIAMINE HCL 100 MG TABLET (FP) PO SCH (22:29)
[2017-05-28] MEDS: PATIENT'S OWN MEDICATION (NON-FORMULARY) (Insulin Glargine,Hum.Rec.Anlog [Basaglar Kwikpen SQ SCH (22:30)
[2017-05-28] MEDS: diphenhydrAMINE HCL 50 MG CAPSULE PO PRN (22:32)
[2017-05-28] MEDS: FLUTICASONE PROP 0.05% 16 GM NASAL SPRAY NS SCH (22:55)
[2017-05-29] MEDS: chlordiazePOXIDE HCL 25 MG CAPSULE PO SCH ×4 (05:56→22:03)
[2017-05-29] MEDS ORDERED: INSULIN (NOVOLOG) ASPART 100 UNITS/ML 10ML VIAL ONE ×2 (07:10→16:45)
[2017-05-29] MEDS: PANTOPRAZOLE 40 MG TABLET (FP) PO SCH (07:11)
[2017-05-29] MEDS: INSULIN SLIDING SCALE (NOVOLOG) 1 VIAL SQ SCH ×2 (07:15→16:49)
[2017-05-29] MEDS: metFORMIN HCL 500 MG TABLET (FP) PO SCH ×2 (07:17→16:46)
--- NOTE | 2017-05-29 08:38 | CONSULT ---
[facility] Psychiatric Consult - Data Date of interview: 05/29/17 Admission source: [facility] Identifying data: This is 46 years old female with history of Bipolar disorder, with no psychiatric hospityalization history, intoxicated with:Alcohol, Nicotine , Benzodiazepins and Amphethamins Substance Abuse History: Drug Screen Negative: No. Urine Drug Screen Results: AMP-Amphetamines, BZO-Benzodiazepines. - Smoking Cessation. Smoking history: Current every day smoker. Have you smoked in the past 12 months: No. Aproximately how many cigarettes per day: 10. Cigars Per Day: 0. Hx Chewing Tobacco Use: No. Initiated information on smoking cessation: Yes. 'Breaking Loose' booklet given: 05/28/17. - Substance & Tx. History. Hx Alcohol Use: Yes (RUM). Hx Substance Use: No (DENIES). Hx Substance Use Treatment: Yes ( LAST TX AT [facility] DETOX). - Substances Abused. Alcohol. Route: Oral. Frequency: Daily. Amount used: Rum - 2 pints. Age of first use: 16. Date of Last Use: 05/27/17 Medical History: Asthma. LBP, GERD, DM-2, HTN Psychiatric History: Patient reports history of Bipolar disordewr, ADHD, reports taking prior to admission Depakote 1000mg po qhs since long time ago with goosd response, reports taking this amount during previous detox admissions with good response as well Physical/Sexual Abuse/Trauma History: Denies Additional Comment: Drug Screen Negative: No. Urine Drug Screen Results: AMP- Amphetamines, BZO-Benzodiazepines. Depakote 1000mg po qhs Mental Status Exam - Mental Status Exam Alert and Oriented to: Person Cognitive Function: Fair Patient Appearance: Well Groomed Mood: Anxious Affect: Mood Congruent Patient Behavior: Cooperative Speech Pattern: Appropriate Voice Loudness: Normal Thought Process: Goal Oriented Thought Disorder: Being Controlled Hallucinations: Denies Suicidal Ideation: Denies Homicidal Ideation: Denies Sleep: Difficulty falling asleep Appetite: Weight gain Muscle strength/Tone: Mild Hypertonicity Gait/Station: Normal Additional Comments: Depakote 1000mg po qhs Psychiatric Findings - Problem List ([place] 1, 2,3) (1) Nicotine dependence Current Visit: Yes Status: Chronic Qualifiers: Nicotine product type: cigarettes (2) ADHD (attention deficit hyperactivity disorder) Current Visit: No Status: Chronic Comment: History. (3) Bipolar disorder Current Visit: No Status: Chronic Comment: Self-report. (4) Drug-induced mood disorder Current Visit: Yes Status: Acute - Initial Treatment Plan Initial Treatment Plan: Depakote 1000mg po qhs
--- NOTE | 2017-05-29 10:15 | PN ---
[facility] CIWA - CIWA Score Nausea/Vomitin Muscle Tremors: 3 Anxiety: 3 Agitation: 2 Paroxysmal Sweats: 1-Minimal Palms Moist Orientation: 0-Oriented Tacttile Disturbances: 1-Very Mild Itch/Numbness Auditory Disturbances: 1-Very Mild Visual Disturbances: 1-Very Mild Sensitivity Headache: 2-Mild CIWA-Ar Total Score: 17 S Progress Note (SOAP) Subjective: ALERT,IRRITABLE,ANXIOUS,INTERRUPTED SLEEP,TREMOR, Objective: 05/29/17 10:13 Vital Signs Temperature 96.6 F L 05/29/17 09:48 Pulse Rate 106 H 05/29/17 09:48 Respiratory Rate 18 05/29/17 09:48 Blood Pressure 127/70 05/29/17 09:48 O2 Sat by Pulse Oximetry (%) EKG SINUS TACHYCARDIA 102/MIN NO CHEST PAIN,NO SOB,NO DIZZINESS Laboratory Last Values WBC 9.4 K/mm3 (4.0-10.0) 05/28/17 13:00 RBC 4.58 M/mm3 (3.60-5.2) 05/28/17 13:00 Hgb 13.6 GM/dL (10.7-15.3) 05/28/17 13:00 Hct 41.1 % (32.4-45.2) 05/28/17 13:00 MCV 89.9 fl (80-96) 05/28/17 13:00 MCH 29.7 pg (25.7-33.7) 05/28/17 13:00 MCHC 33.0 g/dl (32.0-36.0) 05/28/17 13:00 RDW 14.8 % (11.6-15.6) 05/28/17 13:00 Plt Count 279 K/MM3 (134-434) D 05/28/17 13:00 MPV 8.9 fl (7.5-11.1) 05/28/17 13:00 Sodium 137 mmol/L (136-145) 05/28/17 13:00 Potassium 3.6 mmol/L (3.5-5.1) 05/28/17 13:00 Chloride 99 mmol/L (98-107) 05/28/17 13:00 Carbon Dioxide 25 mmol/L (21-32) 05/28/17 13:00 Anion Gap 13 (8-16) 05/28/17 13:00 BUN 13 mg/dL (7-18) D 05/28/17 13:00 Creatinine 0.9 mg/dL (0.55-1.02) 05/28/17 13:00 Creat Clearance w eGFR > 60 (>60) 05/28/17 13:00 POC Glucometer 228 UNITS (()) 05/29/17 05:55 Random Glucose 287 mg/dL (74-106) H D 05/28/17 13:00 Calcium 8.9 mg/dL (8.5-10.1) 05/28/17 13:00 Total Bilirubin 1.2 mg/dL (0.2-1.0) H D 05/28/17 13:00 AST 23 U/L (15-37) D 05/28/17 13:00 ALT 43 U/L (12-78) D 05/28/17 13:00 Alkaline Phosphatase 82 U/L (45-117) 05/28/17 13:00 Total Protein 7.9 g/dl (6.4-8.2) 05/28/17 13:00 Albumin 4.1 g/dl (3.4-5.0) 05/28/17 13:00 Urine Color Yellow 05/28/17 21:45 Urine Appearance Slcloudy 05/28/17 21:45 Urine pH 5.0 (5.0-8.0) 05/28/17 21:45 Urine Protein Negative (NEGATIVE) 05/28/17 21:45 Urine Glucose (UA) 3+ (NEGATIVE) H 05/28/17 21:45 Urine Ketones 1+ (NEGATIVE) H 05/28/17 21:45 Urine Blood Negative (NEGATIVE) 05/28/17 21:45 Urine Nitrite Negative (NEGATIVE) 05/28/17 21:45 Urine Bilirubin Negative (NEGATIVE) 05/28/17 21:45 Urine Urobilinogen Negative mg/dL (0.2-1.0) 05/28/17 21:45 Ur Leukocyte Esterase Negative (NEGATIVE) 05/28/17 21:45 Assessment: 05/29/17 10:14 WITHDRAWAL SYMPTOM Plan: CONTINUE DETOX,BGM MONITORING
[2017-05-29] MEDS: LORATADINE 10 MG TABLET PO SCH (10:30)
[2017-05-29] MEDS: PRENATAL VITAMINS W/ FOLIC ACID TABLET (FP) PO SCH (10:30)
[2017-05-29] MEDS: LISINOPRIL 5 MG TABLET (FP) PO SCH (10:30)
[2017-05-29] MEDS: FLUTICASONE PROP 0.05% 16 GM NASAL SPRAY NS SCH ×2 (10:30→22:02)
[2017-05-29] MEDS: NICOTINE 14 MG/24 HOURS TOPICAL PATCH TD SCH (10:31)
[2017-05-29] MEDS: hydrOXYzine PAMOATE 25 MG CAPSULE (FP) PO PRN (10:34)
--- NOTE | 2017-05-29 11:17 | EKG ---
Test Reason : Blood Pressure : / mmHG Vent. Rate : 102 BPM Atrial Rate : 102 BPM P-R Int : 120 ms QRS Dur : 092 ms QT Int : 390 ms P-R-T Axes : 061 068 049 degrees QTc Int : 508 ms SINUS TACHYCARDIA POSSIBLE LEFT ATRIAL ENLARGEMENT BORDERLINE ECG WHEN COMPARED WITH ECG OF 24-APR-2017 15:59, NO SIGNIFICANT CHANGE WAS FOUND Confirmed by FERNANDO HAN MD ([id number]) on 05/29/2017 11:17:06 AM Referred By: Confirmed By:FERNANDO HAN MD
[2017-05-29] MEDS: chlordiazePOXIDE HCL 25 MG CAPSULE PO PRN (13:42)
[2017-05-29] MEDS: ALBUTEROL SO4 6.7 GM HFA INHALER IH PRN ×2 (13:46→22:03)
[2017-05-29] MEDS: PATIENT'S OWN MEDICATION (NON-FORMULARY) (Insulin Glargine,Hum.Rec.Anlog [Basaglar Kwikpen SQ SCH (21:57)
[2017-05-29] MEDS: THIAMINE HCL 100 MG TABLET (FP) PO SCH (21:58)
[2017-05-29] MEDS: ATORVASTATIN CA 40 MG TABLET (FP) PO SCH (21:59)
[2017-05-29] MEDS: DIVALPROEX SODIUM 500 MG TABLET E.C. PO SCH (21:59)
[2017-05-30] MEDS: PANTOPRAZOLE 40 MG TABLET (FP) PO SCH (06:02)
[2017-05-30] MEDS: chlordiazePOXIDE HCL 25 MG CAPSULE PO SCH ×2 (06:02→10:37)
[2017-05-30] MEDS: metFORMIN HCL 500 MG TABLET (FP) PO SCH ×2 (06:02→16:54)
[2017-05-30] MEDS ORDERED: INSULIN (NOVOLOG) ASPART 100 UNITS/ML 10ML VIAL ONE ×2 (06:20→16:51)
[2017-05-30] MEDS: INSULIN SLIDING SCALE (NOVOLOG) 1 VIAL SQ SCH ×2 (06:24→16:55)
[2017-05-30] MEDS: PRENATAL VITAMINS W/ FOLIC ACID TABLET (FP) PO SCH (10:38)
[2017-05-30] MEDS: LORATADINE 10 MG TABLET PO SCH (10:38)
[2017-05-30] MEDS: NICOTINE 14 MG/24 HOURS TOPICAL PATCH TD SCH (10:38)
[2017-05-30] MEDS: LISINOPRIL 5 MG TABLET (FP) PO SCH (10:38)
[2017-05-30] MEDS: FLUTICASONE PROP 0.05% 16 GM NASAL SPRAY NS SCH (10:38)
[2017-05-30] MEDS: hydrOXYzine PAMOATE 25 MG CAPSULE (FP) PO PRN ×2 (10:42→15:11)
--- NOTE | 2017-05-30 11:45 | PN ---
S CIWA - CIWA Score Nausea/Vomitin Muscle Tremors: 3 Anxiety: 3 Agitation: 2 Paroxysmal Sweats: 1-Minimal Palms Moist Orientation: 0-Oriented Tacttile Disturbances: 1-Very Mild Itch/Numbness Auditory Disturbances: 1-Very Mild Visual Disturbances: 1-Very Mild Sensitivity Headache: 2-Mild CIWA-Ar Total Score: 17 BHS Progress Note (SOAP) Subjective: ALERT,IRRITABLE,ANXIOUS,INTERRUPTED SLEEP,TREMOR Objective: 05/30/17 11:43 Vital Signs Temperature 97.9 F 05/30/17 10:13 Pulse Rate 109 H 05/30/17 10:13 Respiratory Rate 18 05/30/17 10:13 Blood Pressure 125/64 05/30/17 10:13 O2 Sat by Pulse Oximetry (%) Laboratory Last Values WBC 9.4 K/mm3 (4.0-10.0) 05/28/17 13:00 RBC 4.58 M/mm3 (3.60-5.2) 05/28/17 13:00 Hgb 13.6 GM/dL (10.7-15.3) 05/28/17 13:00 Hct 41.1 % (32.4-45.2) 05/28/17 13:00 MCV 89.9 fl (80-96) 05/28/17 13:00 MCH 29.7 pg (25.7-33.7) 05/28/17 13:00 MCHC 33.0 g/dl (32.0-36.0) 05/28/17 13:00 RDW 14.8 % (11.6-15.6) 05/28/17 13:00 Plt Count 279 K/MM3 (134-434) D 05/28/17 13:00 MPV 8.9 fl (7.5-11.1) 05/28/17 13:00 Sodium 137 mmol/L (136-145) 05/28/17 13:00 Potassium 3.6 mmol/L (3.5-5.1) 05/28/17 13:00 Chloride 99 mmol/L (98-107) 05/28/17 13:00 Carbon Dioxide 25 mmol/L (21-32) 05/28/17 13:00 Anion Gap 13 (8-16) 05/28/17 13:00 BUN 13 mg/dL (7-18) D 05/28/17 13:00 Creatinine 0.9 mg/dL (0.55-1.02) 05/28/17 13:00 Creat Clearance w eGFR > 60 (>60) 05/28/17 13:00 POC Glucometer 214 UNITS (()) 05/30/17 05:59 Random Glucose 287 mg/dL (74-106) H D 05/28/17 13:00 Calcium 8.9 mg/dL (8.5-10.1) 05/28/17 13:00 Total Bilirubin 1.2 mg/dL (0.2-1.0) H D 05/28/17 13:00 AST 23 U/L (15-37) D 05/28/17 13:00 ALT 43 U/L (12-78) D 05/28/17 13:00 Alkaline Phosphatase 82 U/L (45-117) 05/28/17 13:00 Total Protein 7.9 g/dl (6.4-8.2) 05/28/17 13:00 Albumin 4.1 g/dl (3.4-5.0) 05/28/17 13:00 Urine Color Yellow 05/28/17 21:45 Urine Appearance Slcloudy 05/28/17 21:45 Urine pH 5.0 (5.0-8.0) 05/28/17 21:45 Ur Specific [place] 1.025 (1.005-1.025) 05/28/17 21:45 Urine Protein Negative (NEGATIVE) 05/28/17 21:45 Urine Glucose (UA) 3+ (NEGATIVE) H 05/28/17 21:45 Urine Ketones 1+ (NEGATIVE) H 05/28/17 21:45 Urine Blood Negative (NEGATIVE) 05/28/17 21:45 Urine Nitrite Negative (NEGATIVE) 05/28/17 21:45 Urine Bilirubin Negative (NEGATIVE) 05/28/17 21:45 Urine Urobilinogen Negative mg/dL (0.2-1.0) 05/28/17 21:45 Ur Leukocyte Esterase Negative (NEGATIVE) 05/28/17 21:45 RPR Titer Nonreactive (NONREACTIVE) 05/28/17 13:00 Assessment: 05/30/17 11:44 WITHDRAWAL SYMPTOM Plan: CONTINUE DETOX,BGM MONITORING
[2017-05-30] MEDS: IBUPROFEN 400 MG TABLET (FP) PO PRN (12:03)
[2017-05-30] MEDS: chlordiazePOXIDE HCL 25 MG CAPSULE PO PRN (15:11)
[2017-05-30] MEDS: chlordiazePOXIDE 5 MG CAPSULE PO SCH ×2 (16:54→22:20)
[2017-05-30] MEDS ORDERED: ATORVASTATIN CA 20 MG TABLET (FP) ONE (21:13)
[2017-05-30] MEDS: THIAMINE HCL 100 MG TABLET (FP) PO SCH (22:19)
[2017-05-30] MEDS: DIVALPROEX SODIUM 500 MG TABLET E.C. PO SCH (22:19)
[2017-05-30] MEDS: ATORVASTATIN CA 40 MG TABLET (FP) PO SCH (22:20)
[2017-05-30] MEDS: PATIENT'S OWN MEDICATION (NON-FORMULARY) (Insulin Glargine,Hum.Rec.Anlog [Basaglar Kwikpen SQ SCH (22:20)
[2017-05-30] MEDS: diphenhydrAMINE HCL 50 MG CAPSULE PO PRN (22:21)
[2017-05-31] MEDS: chlordiazePOXIDE 5 MG CAPSULE PO SCH ×2 (06:19→10:55)
[2017-05-31] MEDS: metFORMIN HCL 500 MG TABLET (FP) PO SCH ×2 (06:20→17:35)
[2017-05-31] MEDS: PANTOPRAZOLE 40 MG TABLET (FP) PO SCH (06:20)
[2017-05-31] MEDS ORDERED: INSULIN (NOVOLOG) ASPART 100 UNITS/ML 10ML VIAL ONE ×2 (06:45→17:02)
[2017-05-31] MEDS: INSULIN SLIDING SCALE (NOVOLOG) 1 VIAL SQ SCH ×2 (06:46→17:38)
[2017-05-31] MEDS: IBUPROFEN 400 MG TABLET (FP) PO PRN (08:06)
[2017-05-31] MEDS: LORATADINE 10 MG TABLET PO SCH (10:55)
[2017-05-31] MEDS: PRENATAL VITAMINS W/ FOLIC ACID TABLET (FP) PO SCH (10:55)
[2017-05-31] MEDS: LISINOPRIL 5 MG TABLET (FP) PO SCH (10:55)
[2017-05-31] MEDS: NICOTINE 14 MG/24 HOURS TOPICAL PATCH TD SCH (10:56)
[2017-05-31] MEDS: FLUTICASONE PROP 0.05% 16 GM NASAL SPRAY NS SCH ×3 (10:56→22:01)
[2017-05-31] MEDS: ALBUTEROL SO4 6.7 GM HFA INHALER IH PRN ×2 (10:59→22:06)
[2017-05-31] MEDS: chlordiazePOXIDE HCL 25 MG CAPSULE PO PRN (12:55)
--- NOTE | 2017-05-31 13:47 | PN ---
S Progress Note (SOAP) Subjective: alert,irritable,anxious,interrupted sleep,has incident with coffee spill on right hand Objective: 05/31/17 13:44 Vital Signs Temperature 96.8 F L 05/31/17 10:00 Pulse Rate 96 H 05/31/17 10:00 Respiratory Rate 18 05/31/17 10:00 Blood Pressure 126/66 05/31/17 10:00 O2 Sat by Pulse Oximetry (%) Laboratory Last Values WBC 9.4 K/mm3 (4.0-10.0) 05/28/17 13:00 RBC 4.58 M/mm3 (3.60-5.2) 05/28/17 13:00 Hgb 13.6 GM/dL (10.7-15.3) 05/28/17 13:00 Hct 41.1 % (32.4-45.2) 05/28/17 13:00 MCV 89.9 fl (80-96) 05/28/17 13:00 MCH 29.7 pg (25.7-33.7) 05/28/17 13:00 MCHC 33.0 g/dl (32.0-36.0) 05/28/17 13:00 RDW 14.8 % (11.6-15.6) 05/28/17 13:00 Plt Count 279 K/MM3 (134-434) D 05/28/17 13:00 MPV 8.9 fl (7.5-11.1) 05/28/17 13:00 Sodium 137 mmol/L (136-145) 05/28/17 13:00 Potassium 3.6 mmol/L (3.5-5.1) 05/28/17 13:00 Chloride 99 mmol/L (98-107) 05/28/17 13:00 Carbon Dioxide 25 mmol/L (21-32) 05/28/17 13:00 Anion Gap 13 (8-16) 05/28/17 13:00 BUN 13 mg/dL (7-18) D 05/28/17 13:00 Creatinine 0.9 mg/dL (0.55-1.02) 05/28/17 13:00 Creat Clearance w eGFR > 60 (>60) 05/28/17 13:00 POC Glucometer 317 UNITS (()) 05/31/17 06:14 Random Glucose 287 mg/dL (74-106) H D 05/28/17 13:00 Calcium 8.9 mg/dL (8.5-10.1) 05/28/17 13:00 Total Bilirubin 1.2 mg/dL (0.2-1.0) H D 05/28/17 13:00 AST 23 U/L (15-37) D 05/28/17 13:00 ALT 43 U/L (12-78) D 05/28/17 13:00 Alkaline Phosphatase 82 U/L (45-117) 05/28/17 13:00 Total Protein 7.9 g/dl (6.4-8.2) 05/28/17 13:00 Albumin 4.1 g/dl (3.4-5.0) 05/28/17 13:00 Urine Color Yellow 05/28/17 21:45 Urine Appearance Slcloudy 05/28/17 21:45 Urine pH 5.0 (5.0-8.0) 05/28/17 21:45 Ur Specific [place] 1.025 (1.005-1.025) 05/28/17 21:45 Urine Protein Negative (NEGATIVE) 05/28/17 21:45 Urine Glucose (UA) 3+ (NEGATIVE) H 05/28/17 21:45 Urine Ketones 1+ (NEGATIVE) H 05/28/17 21:45 Urine Blood Negative (NEGATIVE) 05/28/17 21:45 Urine Nitrite Negative (NEGATIVE) 05/28/17 21:45 Urine Bilirubin Negative (NEGATIVE) 05/28/17 21:45 Urine Urobilinogen Negative mg/dL (0.2-1.0) 05/28/17 21:45 Ur Leukocyte Esterase Negative (NEGATIVE) 05/28/17 21:45 RPR Titer Nonreactive (NONREACTIVE) 05/28/17 13:00 Assessment: 05/31/17 13:45 withdrawal symptom right hand no erythema,no blister Plan: withdrawal symptom,ice pack right hand,bgm monitoring discharge in am
[2017-05-31] MEDS: hydrOXYzine PAMOATE 25 MG CAPSULE (FP) PO PRN (17:36)
[2017-05-31] MEDS: chlordiazePOXIDE HCL 10 MG CAPSULE PO SCH ×2 (17:37→22:00)
[2017-05-31] MEDS ORDERED: ATORVASTATIN CA 20 MG TABLET (FP) ONE (21:19)
[2017-05-31] MEDS: THIAMINE HCL 100 MG TABLET (FP) PO SCH (22:00)
[2017-05-31] MEDS: ATORVASTATIN CA 40 MG TABLET (FP) PO SCH (22:00)
[2017-05-31] MEDS: DIVALPROEX SODIUM 500 MG TABLET E.C. PO SCH (22:00)
[2017-05-31] MEDS: PATIENT'S OWN MEDICATION (NON-FORMULARY) (Insulin Glargine,Hum.Rec.Anlog [Basaglar Kwikpen SQ SCH (22:02)
[2017-06-01] MEDS: chlordiazePOXIDE HCL 10 MG CAPSULE PO SCH (05:39)
[2017-06-01 06:20] VITALS: BP 113/55; PULSE 96; TEMP 96.9
[2017-06-01] MEDS ORDERED: INSULIN (NOVOLOG) ASPART 100 UNITS/ML 10ML VIAL ONE (07:03)
[2017-06-01] MEDS: INSULIN SLIDING SCALE (NOVOLOG) 1 VIAL SQ SCH (07:05)
[2017-06-01] MEDS: metFORMIN HCL 500 MG TABLET (FP) PO SCH (07:09)
[2017-06-01] MEDS: PANTOPRAZOLE 40 MG TABLET (FP) PO SCH (07:09)
--- NOTE | 2017-06-01 08:07 | PN ---
S Progress Note (SOAP) Subjective: ALERT,NO COMPLAINT Objective: 06/01/17 08:05 Vital Signs Temperature 96.9 F L 06/01/17 06:19 Pulse Rate 96 H 06/01/17 06:19 Respiratory Rate 20 06/01/17 06:19 Blood Pressure 113/55 06/01/17 06:19 O2 Sat by Pulse Oximetry (%) Assessment: 06/01/17 08:05 DETOX COMPLETED,NO WITHDRAWAL SYMPTOM Plan: DISCHARGE TODAY,FOLLOW UP WITH AFTER CARE PROGRAM ARRANGEMENT
--- NOTE | 2017-06-01 08:10 | DS ---
[facility] Detox Discharge Summary Admission Date: 05/28/17 Discharge Date: 06/01/17 - History Present History: Alcohol Dependence Additional Comments: FOLLOW UP WITH AFTER CARE PROGRAM ARRANGEMENT Pertinent Past History: ASTHMA CHRONIC LOW BACK PAIN GERD HYPERTENSION TYPE 2 DM NICOTINE DEPENDENCE - Physical Exam Results Vital Signs: Vital Signs Temperature 96.9 F L 06/01/17 06:19 Pulse Rate 96 H 06/01/17 06:19 Respiratory Rate 20 06/01/17 06:19 Blood Pressure 113/55 06/01/17 06:19 O2 Sat by Pulse Oximetry (%) Pertinent Admission Physical Exam Findings: WITHDRAWAL SYMPTOM - Treatment Hospital Course: Detox Protocol Followed, Detoxed Safely, Responded well, Discharged Condition Good Patient has Accepted a Rehab Referral to: DECLINED - Medication Discharge Medications: Ambulatory Orders Metformin HCl [Glucophage -] 1,000 mg PO BID@0700,1630 #60 tablet 12/29/14 Albuterol Sulfate Inhaler - [Ventolin Hfa Inhaler -] 2 inh PO Q4H PRN 04/24/17 Amphetamine Sulfate [Evekeo] 20 mg PO DAILY 04/24/17 Atorvastatin Calcium 40 mg PO HS 04/24/17 Cetirizine HCl 10 mg PO DAILY 04/24/17 Diazepam [Valium] 5 mg PO Q8H 04/24/17 Divalproex Sodium [Divalproex Sodium ER] 1,000 mg PO HS 04/24/17 Fluticasone Prop 0.05% Nasal [Flonase -] 1 - 2 spray NS BID 04/24/17 Ibuprofen 800 mg PO Q6H PRN 04/24/17 Insulin Glargine,Hum.rec.anlog [Basaglar Kwikpen U-100] 17 unit SQ HS 04/24/17 Lisinopril 5 mg PO DAILY 04/24/17 Omeprazole 40 mg PO DAILY 04/24/17 Divalproex Sodium [Depakote ER] 1,000 mg PO HS #60 tab.er.24h 04/25/17 Divalproex [Depakote -] 1,000 mg PO HS #30 tab 05/29/17 - Diagnosis (1) Alcohol dependence with uncomplicated withdrawal Status: Acute (2) Nicotine dependence Status: Acute Qualifiers: Nicotine product type: cigarettes Substance use status: in withdrawal Qualified Code(s): F17.213 - Nicotine dependence, cigarettes, with withdrawal (3) Syncope Status: Acute (4) Asthma Status: Chronic Qualifiers: Asthma severity: mild intermittent Asthma complication type: uncomplicated Qualified Code(s): J45.20 - Mild intermittent asthma, uncomplicated (5) Chronic back pain greater than 3 months duration Status: Chronic (6) GERD (gastroesophageal reflux disease) Status: Chronic Qualifiers: Esophagitis presence: without esophagitis Qualified Code(s): K21.9 - Gastro-esophageal reflux disease without esophagitis (7) HTN (hypertension) Status: Chronic Qualifiers: Hypertension type: essential hypertension Qualified Code(s): I10 - Essential (primary) hypertension (8) Type 2 diabetes mellitus Status: Chronic Qualifiers: Diabetes mellitus complication status: without complication Diabetes mellitus inside outside sales representative insulin use: with intermediate use Qualified Code(s): E11.9 - Type 2 diabetes mellitus without complications - AMA Did Patient Leave Against Medical Advice: No
== END 2017-06-01 07:10 | disposition home or self-care (01) | DRG 775 ==
LOC: YASAS 11:25 → Y6N 15:01
PROVIDERS: ADMIT Internal Medicine; ATTEND Internal Medicine
PROC: HZ2ZZZZ Detoxification Services for Substance Abuse Treatment (ICD-10-PCS; principal; 2017-05-28)
DX: F10.230 Alcohol dependence with withdrawal, uncomplicated (principal); F17.213 Nicotine dependence, cigarettes, with withdrawal; F90.9 Attention-deficit hyperactivity disorder, unspecified type; F31.9 Bipolar disorder, unspecified; F19.24 Other psychoactive substance dependence with psychoactive substance-induced mood disorder; J45.20 Mild intermittent asthma, uncomplicated; M54.5 Low back pain; G89.29 Other chronic pain; E78.00 Pure hypercholesterolemia, unspecified; K21.9 Gastro-esophageal reflux disease without esophagitis; I10 Essential (primary) hypertension; E11.9 Type 2 diabetes mellitus without complications; Z79.4 Long term (current) use of insulin; R00.0 Tachycardia, unspecified; Z86.2 Personal history of diseases of the blood and blood-forming organs and certain disorders involving the immune mechanism; Z86.79 Personal history of other diseases of the circulatory system; Z79.84 Long term (current) use of oral hypoglycemic drugs; R29.6 Repeated falls; Z86.69 Personal history of other diseases of the nervous system and sense organs
CPT/HCPCS: 36415; 80053; 81003; 85027; 86593; 93005; 93010